=== PATIENT | female | born 2000 | race Caucasian/White ===

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

== ENCOUNTER 2023-12-03 19:26 | Emergency (ER) | payer BC ==
[~2023-12-03] VITALS: Ht 182.9 cm; Wt 104.5 kg
[2023-12-03 19:33] VITALS: TEMP 98.8
[2023-12-03] MEDS ORDERED: Morphine 4 MG/ML VIAL IV ONE (19:45)
[2023-12-03] MEDS ORDERED: LR 1,000 ML IV ONE (19:45)
[2023-12-03] MEDS ORDERED: Ondansetron 4 MG/2 ML VIAL IV ONE (19:45)
[2023-12-03 20:41] LABS: BASO % 0.3 % (0.0-2.0); EOS % 0.4 % (0.0-4.0); GRAN # 6.7 K/mm3 (1.4-6.5); GRAN % 69.6 % (42.2-75.2); HEMATOCRIT 38.7 % (37.0-47.0); HEMOGLOBIN 12.4 g/dl (12.5-16.0); LYMPH # 2.1 K/mm3 (1.2-3.4); LYMPH % 21.6 % (20.0-51.0); MEAN CELL VOLUME 88 fl (80.0-100.0); MEAN CORPUSCULAR HEMOGLOBIN 28 pg (27-31); MEAN CORPUSCULAR HGB CONC 32 g/dl (33.0-37.0); MEAN PLATELET VOLUME 10.2 fl (7.4-10.4); MONO # 0.8 K/mm3 (0.1-0.6); MONO % 7.9 % (1.7-9.3); PLATELET COUNT 284 K/mm3 (130-400); RED BLOOD COUNT 4.41 M/mm3 (4.10-5.30); REDCELL DISTRIBUTION WIDTH-CV 13.6 % (11.5-14.5)
[2023-12-03 20:59] LABS: ALBUMIN 3.7 g/dL (3.5-5.0); BILIRUBIN,TOTAL 1.4 mg/dL (0.2-1.2); C-REACTIVE PROTEIN 1.19 mg/dL (0.00-0.50); CREATININE, serum 0.77 mg/dL (0.57-1.11); POTASSIUM 3.7 mEq/L (3.5-4.5); TOTAL PROTEIN 7.1 g/dl (6.2-8.1)
[2023-12-03 21:47] LABS: COLLECTION METHOD CLEAN CATCH
[2023-12-03] MEDS ORDERED: Iohexol 300 - 100 ML VIAL IV ONE (21:57)
[2023-12-03] MEDS ORDERED: NS 50 ML IV SCH (21:58)
[2023-12-03 22:00] LABS: URINE APPEARANCE Hazy (CLEAR/HAZY); URINE BLOOD NEGATIVE (NEGATIVE); URINE COLOR YELLOW (YELLOW); URINE GLUCOSE NEGATIVE (NEGATIVE); URINE KETONE NEGATIVE (NEGATIVE); URINE NITRATE NEGATIVE (NEGATIVE); URINE PROTEIN(semi-quant) NEGATIVE (NEGATIVE)
[2023-12-03 22:32] VITALS: BP 122/52; PULSE 75
== END 2023-12-03 22:32 | disposition home or self-care (01) ==
LOC: COL.ER 19:26
PROVIDERS: Family Medicine
DX: K80.50 Calculus of bile duct without cholangitis or cholecystitis without obstruction (principal)
CPT/HCPCS: J2270; J2405; J7120; Q9967